=== PATIENT | male | born 1950 | race Caucasian/White ===

== ENCOUNTER 2020-04-11 13:06 | Emergency (ER) | payer MEDICARE, OTHER, SELFPAY ==
--- NOTE | 2020-04-11 13:12 | ED.GENADULT ---
HPI - General Adult General Chief complaint: Wound/Laceration Stated complaint: cut on left ankle Time Seen by Provider: 04/11/20 13:12 Source: patient Mode of arrival: ambulatory Limitations: no limitations History of Present Illness HPI narrative: 70-year-old male patient presents to the [facility] with complaints of laceration left ankle. Patient states that he was scratched by his son's dog which is a great Haris. Patient unaware of when his last tetanus shot was. Denies being a diabetic. Patient states it was bleeding pretty good when to come and get the wound checked out. Related Data Home Medications Medication Instructions Recorded Confirmed allopurinol 04/11/20 aspirin 04/11/20 atorvastatin 04/11/20 propranolol 04/11/20 Allergies Allergy/AdvReac Type Severity Reaction Status Date / Time No Known Allergies Allergy Verified 04/11/20 13:23 Review of Systems Review of Systems: Narrative: CONSTITUTIONAL: Denies fever, chills, or sweats. EYES: Denies visual changes, redness, or discharge. ENT: Denies rhinorrhea, congestion, sore throat, or otalgia. CARDIOVASCULAR: Denies chest pain, palpitations, or edema. RESPIRATORY: Denies cough or dyspnea. GASTROINTESTINAL: Denies abdominal pain, nausea, vomiting, or diarrhea. GENITOURINARY: Denies dysuria or hematuria. SKIN: Denies rash or itching. Positive laceration to left ankle MUSCULOSKELETAL: Denies back pain, joint pain, or myalgia. NEUROLOGIC: Denies headache, numbness, or weakness. PSYCHIATRIC: Denies anxiety or depression. [facility] Social History Social History Gender identity (if verbalized by the patient): Male Comments At the time of my signature I agree with nursing past medical history, surgical, social, and family history. There is no relevant family history pertinent to the presenting complaint. Exam Narrative: Exam Narrative: GENERAL: Well-appearing, well-nourished, and in no acute distress. HEAD: Normocephalic, atraumatic. EYES: PERRLA and EOMI. ENT: Nares clear, no rhinorrhea or epistaxis. Mucous membranes moist. NECK: Supple. No lymphadenopathy CHEST: Clear to auscultation. No respiratory distress. HEART: Regular rate and rhythm. No murmur heard. Normal peripheral pulses. ABDOMEN: Soft, nontender, nondistended, normal active bowel sounds. EXTREMITIES: Normal range of motion. No edema. SKIN: Warm, dry, no rash. Patient has approximately 1.5 cm laceration to the lateral left ankle right above the lateral malleolus. Bleeding is controlled. Patient has excellent range of motion to the foot and ankle. No numbness or tingling noted. NEURO: No focal deficits. Alert and oriented x3. Course Vital Signs Vital signs: Vital Signs Temperature 35.8 C L 04/11/20 13:18 Pulse Rate 94 04/11/20 13:18 Respiratory Rate 16 04/11/20 13:18 Blood Pressure 122/67 04/11/20 13:18 Pulse Oximetry 96 04/11/20 13:18 Temperature 35.8 C L 04/11/20 13:18 Pulse Rate 94 04/11/20 13:18 Respiratory Rate 16 04/11/20 13:18 Blood Pressure 122/67 04/11/20 13:18 Pulse Oximetry 96 04/11/20 13:18 Vital signs reviewed. Procedures Laceration Laceration 1: Date: 04/11/20 Time: 13:30 Site: lower extremity (Ankle) Side (If applicable): left Size (cm): 1.5 Description: linear Depth: simple, single layer Local Anesthetic: none Pre-repair: wound explored and irrigated ====== Skin Level ====== ====== Subcutaneous Layer ====== ====== Muscle Layer ====== ====== Tendon Layer ====== Dressing: The Procedure was explained and verbal consent was obtained. Copious irrigation was done with saline and Shur-Clens and the wound was explored. There was no foreign body or deep structure injury noted. Patient had good range of motion. Wound edges were approximated with good alignment using skin adhesive and Steri-S
[2020-04-11 13:18] VITALS: BP 122/67; PULSE 94; RESP 16; TEMP 35.8; O2SAT 96
[2020-04-11] MEDS: TETANUS,DIPHTHERIA,AC PERTUSSIS ADULT (0.5 ML) BOOSTRIX IM (13:38)
== END 2020-04-11 14:00 | disposition home or self-care (01) ==
PROVIDERS: Emergency Provider Nurse Practitioner Family; PCP Family Medicine
DX: S91.012A Laceration without foreign body, left ankle, initial encounter (principal); W54.8XXA Other contact with dog, initial encounter; Z23 Encounter for immunization; E78.00 Pure hypercholesterolemia, unspecified; I10 Essential (primary) hypertension; Z96.643 Presence of artificial hip joint, bilateral
CPT/HCPCS: 12001; 90471; 90715; 99213; G0463

== ENCOUNTER 2022-11-29 10:08 | Emergency (ER) | payer MEDICARE, SELFPAY ==
--- NOTE | ~2022-11-29 | XR_ITS ---
EXAMINATION: XR chest 2V DATE: 11/29/2022 10:46 INDICATION: Cough and congestion. Shortness of breath. TECHNIQUE: Frontal and lateral views of the chest were obtained. COMPARISON: None. FINDINGS: The chest demonstrates clear lungs without pneumonia, pleural effusion, or pneumothorax. Th e heart size is normal. IMPRESSION: 1. No acute cardiopulmonary disease. Reviewed, dictated and finalized at location A. 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
--- NOTE | 2022-11-29 10:12 | ED.URI ---
HPI - URI/Sore Throat General Chief Complaint: Upper Respiratory Infection Stated Complaint: Chest Congestion Time Seen by Provider: 11/29/22 10:12 Source: patient and RN notes reviewed History of Present Illness HPI Narrative: Patient is a 72-year-old male who presents to urgent care with complaints of chest congestion, and increased shortness of breath. Patient states that approximately 1 week ago he was seen at the [facility] convenient Care and given antibiotics and steroids. Patient states that they told him to follow up with a chest x-ray if the symptoms did not improve. Patient had a negative COVID, influenza and strep test. Patient attempted to get into his primary care doctor and was not able to be seen. Patient denies any fevers. States that the shortness of breath seems to have worsen on exacerbation however he has continued to swim 3 times per day at the local gym. Patient denies any recent wheezing. No other acute complaints. No acute distress noted. Patient aware of the plan care. Some parts of this dictation were generated by voice recognition software and may contain typographical and/or grammatical inaccuracies. Related Data Home Medications Medication Instructions Recorded Confirmed allopurinol 300 mg tablet mg 11/29/22 atorvastatin 80 mg tablet mg 11/29/22 azithromycin 250 mg tablet mg 11/29/22 furosemide 40 mg tablet mg 11/29/22 omeprazole 40 mg capsule,delayed mg 11/29/22 release prednisone 20 mg tablet mg 11/29/22 propranolol 10 mg tablet mg 11/29/22 Allergies Allergy/AdvReac Type Severity Reaction Status Date / Time No Known Allergies Allergy Verified 04/11/20 13:23 Review of Systems Review of Systems: CONSTITUTIONAL: Denies fever, chills, or sweats. EYES: Denies visual changes, redness, or discharge. ENT: Denies rhinorrhea, congestion, sore throat, or otalgia. CARDIOVASCULAR: Denies chest pain, palpitations, or edema. RESPIRATORY: Reports of increased dyspnea and chest congestion GASTROINTESTINAL: Denies abdominal pain, nausea, vomiting, or diarrhea. GENITOURINARY: Denies dysuria or hematuria. SKIN: Denies rash or itching. MUSCULOSKELETAL: Denies back pain, joint pain, or myalgia. NEUROLOGIC: Denies headache, numbness, or weakness. All other systems reviewed are negative, except as documented in HPI. [facility] Social History Social History Gender identity (if verbalized by the patient): Male Comments At the time of my signature, I reviewed and agree with the nursing past medical, surgical, social, and family history. There is no relevant family history pertinent to the patient complaint. Exam Narrative: GENERAL: This is a well-nourished, well-developed patient, in no apparent distress. HEAD: normocephalic, atraumatic. EYES: PERRL. Sclera clear/white. Vision is grossly intact. EARS: External ears normal, auditory canals clear and without drainage, TMs normal without perforation. Hearing grossly intact. NOSE: External nose normal with no obvious nasal discharge, nares without redness, clear rhinorrhea. THROAT: Mucous membranes moist, posterior pharynx clear. Mild postnasal drainage NECK: Neck supple RESPIRATORY: Scant inspiratory wheeze to bilateral upper lobes SKIN: warm, intact with no suspicious lesions or rash, good texture and turgor. NEURO: awake, alert, and oriented to person, place and time. There were no obvious focal neurologic abnormalities. EXTREMITIES: No clubbing, cyanosis, or edema. Course Course Level of Care: Express Care Visit Vital Signs Vital signs: Vital Signs Temperature 98 F 11/29/22 10:26 Pulse Rate 77 11/29/22 10:26 Respiratory Rate 20 11/29/22 10:26 Blood Pressure 155/77 H 11/29/22 10:26 Pulse Oximetry 98 11/29/22 10:26 Oxygen Delivery Room Air 11/29/22 10:26 Temperature 98 F 11/29/22 10:26 Pulse Rate 77 11/29/22 10:26 Respiratory Rate 20 11/29/22 10:26 Blood Pr
[2022-11-29 10:26] VITALS: BP 155/77; PULSE 77; RESP 20; TEMP 36.6; O2SAT 98
== END 2022-11-29 11:10 | disposition home or self-care (01) ==
PROVIDERS: Emergency Provider Nurse Practitioner Family; PCP Family Medicine
DX: J20.9 Acute bronchitis, unspecified (principal)
CPT/HCPCS: 71046; 99213; G0463

== ENCOUNTER 2024-09-22 11:37 | Emergency (ER) | payer OTHER, MEDICARE, SELFPAY ==
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
[2024-09-22 11:44] VITALS: BP 142/80; PULSE 82; RESP 20; TEMP 36.9; O2SAT 99
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
== END 2024-09-22 13:12 | disposition home or self-care (01) ==
PROVIDERS: Emergency Provider Nurse Practitioner; PCP Family Medicine
DX: S90.122A Contusion of left lesser toe(s) without damage to nail, initial encounter (principal); W50.0XXA Accidental hit or strike by another person, initial encounter; Y92.34 Swimming pool (public) as the place of occurrence of the external cause
CPT/HCPCS: 73660; 99213; G0463

== ENCOUNTER 2025-05-13 08:31 | Emergency (ER) | payer MEDICARE, SELFPAY ==
--- NOTE | ~2025-05-13 | XR_ITS ---
XR shoulder RT min 2V 05/13/2025 09:19 Indication: Right shoulder pain Procedure: 4 views right shoulder Comparison: No prior studies for comparison. Findings: There is mild polyarticular osteoarthritis. Osteopenia. No fracture or traumatic malalignme nt. No soft tissue abnormality. No foreign bodies. Impression: 1: Mild polyarticular osteoarthritis. Reviewed, dictated and finalized at location A. Impression: 1: Mild polyarticular osteoarthritis.
--- OUTSIDE RECORDS SUMMARY | 2025-05-13 08:33 | XMS_ITS | Clinical Summary ---
Author Organization [facility] Address [address] [place] [address] Care Team Providers Care Solid State Tester Name Role Phone Mina Aguirre MD Primary Care Provider [phone] Allergies No known active allergies Medications aspirin 325 mg tablet Take 1 tablet (325 mg total) by mouth daily Active allopurinoL (ZYLOPRIM) 300 mg tabletIndications:C hronic gout of multiple sites, unspecified cause Take 1 tablet (300 mg total) by mouth daily 90 tablet 3 4 Active atorvastatin (LIPITOR) 80 mg tabletIndications:M ixed hyperlipidemia Take 1 tablet (80 mg total) by mouth daily 90 tablet 3 4 Active HYDROcodone-acetami nophen (NORCO) 5-325 mg per tabletIndications:P ain Take 1 tablet by mouth every 6 (six) hours as needed for pain 8 tablet 5 Active methocarbamoL (ROBAXIN) 500 mg tablet Take 1 tablet (500 mg total) by mouth 2 (two) times a day as needed for muscle spasms 60 tablet 1 5 Active propranoloL (INDERAL) 10 mg tabletIndications:E ssential tremor TAKE 1 TABLET(10 MG) BY MOUTH TWICE DAILY 200 tablet 1 5 Active furosemide (LASIX) 40 mg tabletIndications:L eg swelling TAKE 1 TABLET(40 MG) BY MOUTH DAILY 100 tablet 1 5 Active omeprazole (PriLOSEC) 40 mg capsuleIndications: Gastroesophageal reflux disease with esophagitis without hemorrhage Take 1 capsule (40 mg total) by mouth 2 (two) times a day 180 capsule 1 5 Active ezetimibe (ZETIA) 10 mg tabletIndications:M ixed hyperlipidemia Take 1 tablet (10 mg total) by mouth daily 90 tablet 4 5 03/17/20 26 Active Active Problems Problem Noted Date Diagnosed Date BMI 35.0-35.9,adult 11/16/2024 Class 2 severe obesity due t o excess calories with serious comorbidity and body mass index (BMI) of 35.0 to 35.9 in adult 11/16/2024 Assessment & Plan (03/17/2025 10:36 AM CDT): Weight is stable. Patient is exercising regularly, water aerobics several days per week. Encouraged healthy diet and monitoring portion sizes. Acute right-sided low back pain with right-sided sciatica 11/16/2024 Laceration of ankle, left 09/12/2024 Ingrown nail of fifth toe of left foot Assessment & Plan (09/12/2024 9:39 AM COUNTRY PRINTER APPRENTICE): Mild erythema around nail of left 5th toe. No pain of distal toe or swelling. No drainage or red streaking. Encouraged patient to soak toe in epsom salt tid. Patient is established with podiatry, scheduled follow up in 2 weeks. Reviewed signs symptoms of worsening infection. Encounter for annual wellness exam in Medicare p atient 03/13/2024 Assessment & Plan (03/17/2025 10:32 AM CDT): Reviewed screenings and vaccinations. Current on c-scope. Discussed shingles vaccination, will get at [facility]. No falls or safety concerns. Denies any problems with memory, completed slums (see attached media). Chronic bilateral low back pain without sciatica 03/09/2023 Assessment & Plan (03/09/2023 1:32 PM CDT): Patient denies any injury or change in symptoms. He has been dealing with lower extremity weakness for many years. Patient would likely benefit from further evaluation and treatment with physical therapy, referral placed. He is very active, exercising regularly. Denies any problems with balance or falls. Bilateral impacted cerumen 10/03/2022 Assessment & Plan (04/10/2024 12:16 PM CDT): Ear tube out, ear drum healed Avoid ear cleaning techniques Follow up as needed May get water in ears Assessment & Plan (10/03/2022 2:08 PM COUNTRY PRINTER APPRENTICE): Avoid ear cleaning techniques Avoid water to left ear Follow up in 9 months, earlier with ear drainage Hyperglycemia 05/19/2022 Assessment & Plan (03/09/2023 1:39 PM CDT): Stable; continue to work on diet and exercise. Assessment & Plan (09/01/2022 1:26 PM COUNTRY PRINTER APPRENTICE): Lab Results Component Value Date HGBA1C 5.9 (H) 08/23/2022 HGBA1C 5.8 (H) 09/26/2019 Assessment & Plan (05/19/2022 7:37 AM CDT): Patient to redo is carb/sugar intake. Will check A1c. Cataract of both eyes 05/18/2022 Assessment & Plan (09/01/2022 1:38 PM COUNTRY PRINTER APPRENTICE): Surgery of left eye with sure [facility] 2 weeks ago. Assessment & Plan (05/18/2022 3:30 PM CDT): [facility] in the next few months. Severe obstructive sleep apnea 04/11/2022 Assessment & Plan (09/12/2024 9:50 AM COUNTRY PRINTER APPRENTICE): Managed by sleep medicine. Interested in discussing inspire device as he has difficulty fitting his mask. Will discuss with sleep med Assessment & Plan (09/01/2022 1:40 PM COUNTRY PRINTER APPRENTICE): Received bipap machine, reports nightly use while adjusting settings with sleep medicine. Assessment & Plan (05/18/2022 3:23 PM CDT): Patient following with sleep medicine, he is working on getting bipap machine. Will continue to monitor. Fadiangeline's ring 12/29/2021 Overview (12/29/2021): Added automatically from request for surgery [id number] Allergic rhinitis 12/19/2021 Assessment & Plan (12/19/2021 3:45 PM CDT): Will trial antihistamine and monitor response. Patient to notify office and return for evaluation if he develops any sob, fevers or worsening of symptoms. Discussed coughing with meals and associated concerns. Recommended sinus irrigation and nasal steroid. Leg swelling 11/10/2021 Assessment & Plan (05/19/2022 7:34 AM CDT): Using furosemide as needed for lower extremity edema. Discussed the need to use compression stockings and decrease dietary sodium,< 2400 mg/day. Patient to complete lab work today. Assessment & Plan (11/10/2021 7:07 PM COUNTRY PRINTER APPRENTICE): Stable; continues lasiks and using compression stockings. Refused influenza vaccine 11/10/2021 Pneumococcal vaccine refused 11/10/2021 Chronic gout of multiple sites 11/10/2021 Assessment & Plan (09/12/2024 9:40 AM COUNTRY PRINTER APPRENTICE): Denies any recent gout flares, continues allopurinol 300 mg daily. Assessment & Plan (03/13/2024 9:34 AM CDT): Stable, no recent exacerbations. Continue allopurinol 300 mg daily Assessment & Plan (03/09/2023 1:17 PM CDT): Doing well on allopurinol 300 mg daily, no recent gout flares. Assessment & Plan (11/10/2021 7:08 PM COUNTRY PRINTER APPRENTICE): No recent flares, continue allopurinol 300 mg daily. Refilled. Mixed hyperlipidemia 11/10/2021 Assessment & Plan (03/17/2025 10:35 AM CDT): Patient is compliant with atorvastatin 80 mg daily and ezetimibe 10 mg daily. Cholesterol is well controlled, mildly elevated triglyceride level. Encouraged patient to limit simple sugars/carbs. Work towards lower fat diet. Assessment & Plan (09/12/2024 9:40 AM COUNTRY PRINTER APPRENTICE): Has been taking atorvastatin 80 mg daily and zetia 10 mg daily as prescribed, was previously frequently forgetting medications. Lipid panel showing sig improvement. Assessment & Plan (03/09/2023 1:16 PM CDT): Patient reports he frequently forgets to take atorvastatin 80 mg daily. Recommended use of bill box or for him to take atorvastatin with am medications. XKS=[id number] Assessment & Plan (09/01/2022 1:26 PM COUNTRY PRINTER APPRENTICE): 11/2020 TC 223 TRG 140 HDL 42 LDL 153 05/2022 TC 192 HDL 37 TRG 119 LDL 131 08/2021 TC 200 HDL 39 TRG 145 LDL 132 Continues atorvastatin 80 mg daily. Discussed dietary changes and avoiding fried/fast/fatty/greasy foods. Assessment & Plan (05/18/2022 3:37 PM CDT): Condition is improving, but not at goal Discussed/ordered labs, encouraged healthy, low carbohydrate lifestyle and at least 150min/week of exercise, continue on atorvastatin 80 mg daily. Discussed need to reduce fried/fast/fatty greasy foods and red meats. 11/2020 TC 223 TRG 140 HDL 42 LDL 153 05/2022 TC 192 HDL 37 TRG 119 LDL 131 Assessment & Plan (11/10/2021 7:06 PM COUNTRY PRINTER APPRENTICE): Atorvastatin 80 mg daily. Denies any SE/myalgias Reviewed previous labs. 11/2020 TC 192 TRG 116 HDL 49 LDL 120. Will check labs today and make adjustments to medications as needed. Secondary prevention Discussed focusing on limiting bad fats in the diet and using exercise as a way to improve cholesterol. Essential tremor 11/10/2021 Assessment & Plan (03/09/2023 1:37 PM CDT): Stable; denies any changes in symptoms or worsening of tremor. Continues propanolol. Assessment & Plan (09/01/2022 1:26 PM COUNTRY PRINTER APPRENTICE): Stable; no changes today. Assessment & Plan (05/18/2022 3:27 PM CDT): Stable; doing well on propanolol. Will continue to monitor. Assessment & Plan (11/10/2021 7:09 PM COUNTRY PRINTER APPRENTICE): Stable; denies any new or worsening symptoms. Continue present management. GERD (gastroesophageal reflux disease) Assessment & Plan (03/17/2025 10:32 AM CDT): Breakthrough symptoms in the evening, does have some reflux at night. Denies any dysphagia or changes in voice. Continues omeprazole 40 mg daily. Discussed avoiding aggravating foods and avoid lying down after meals. Will increase omeprazole to bid. Encouraged weight loss. Patient to reach out if no improvement in the next 8-12 weeks and can plan for referral to GI for EGD. Assessment & Plan (05/18/2022 3:29 PM CDT): Doing well on omeprazole 40 mg daily. Notes significant improvement in cough following esophageal dilation. Discussed use of famotidine as needed for breakthrough reflux. Assessment & Plan (12/19/2021 3:43 PM CDT): Recommended repeat EGD. Patient would like to monitor symptoms for now. Feels coughing is secondary to postnasal drainage. Will notify our office if he does not have any improvement in symptoms in two weeks with plan to refer to GI for repeat EGD at that time. Dysfunction of left eustachian tube 09/27/2021 Assessment & Plan (04/09/2024 1:33 PM CDT): Ear tube out, ear drum healed Avoid ear cleaning techniques Follow up as needed May get water in ears Assessment & Plan (07/04/2023 10:00 AM CDT): Avoid ear cleaning techniques Follow up in 9 months for Left ear tube check Assessment & Plan (10/03/2022 2:08 PM COUNTRY PRINTER APPRENTICE): Avoid ear cleaning techniques Avoid water to left ear Follow up in 9 months, earlier with ear drainage Assessment & Plan (03/28/2022 1:17 PM CDT): Avoid ear cleaning techniques Avoid water to ears Left ear T-tube in place and patent Follow up in 6 months Assessment & Plan (11/10/2021 7:09 PM COUNTRY PRINTER APPRENTICE): PE tube in place. Is using ear plug while swimming/showering. No drainage on exam. Assessment & Plan (09/27/2021 1:08 PM COUNTRY PRINTER APPRENTICE): Avoid ear cleaning techniques Avoid water to Left ear Consider Hearing aids Follow up in 6 months, earlier with ear drainage Encounter for screening colo noscopy for [id number] patient 05/23/2021 Overview (05/23/2021): Added automatically from request for surgery [id number] Chronic middle ear effusion, left 01/24/2021 Assessment & Plan (03/22/2021 2:51 PM CDT): Avoid ear cleaning techniques Avoid water to ears Hearing test - [facility] consider CT temporal bone based on hearing test results Assessment & Plan (03/08/2021 2:36 PM CDT): Left myringotomy with T-tube placement today in the Office Risks and complications discussed including anesthesia, bleeding, infection, hearing loss, ear tubes may fall out early, fall inwards, stay in longer than a few years, get clogged, fall out and leave a hole in the ear drum that would need to be patched, drain clear fluid. Ciprofloxacin ear drops into the left ear twice daily for 5 days How to Use Ear Drops discussed and Handout provided Assessment & Plan (01/24/2021 10:17 PM CDT): [facility] tube [facility] in the Office based on these findings as MRI demonstrated considerable fluid on the left ear Follow up hearing test and possible CT Temporal based on hearing response to tube placement ASNHL (asymmetrical sensorineural hearing loss) 12/14/2020 Assessment & Plan (01/24/2021 10:59 AM CDT): Repeat Hearing test with Tympanograms Consider Ear tube placement in the Office based on these findings as MRI demonstrated considerable fluid on the left ear Follow up hearing test and possible CT Temporal based on hearing response to tube placement Assessment & Plan (12/14/2020 3:07 PM CDT): Sudden Asymmetric Hearing loss Left ear - MRI IACs Acute cholecystitis 11/03/2019 CAD (coronary artery disease) 11/03/2019 Elevated LFTs 11/03/2019 ANTONELLA (obstructive sleep apnea) 11/02/2019 Overview (09/12/2024): Severe on home sleep testing, AHI 43 / hr. Severe on home sleep testing, AHI 43 / hr. Assessment & Plan (03/13/2024 9:23 AM CDT): Nightly cpap use. Cholecystitis 11/01/2019 Overview (09/11/2023): Added automatically from request for surgery [id number] Chronic left hip pain 08/30/2019 Primary osteoarthritis of left hip 06/18/2019 Status post total replacement of right hip 03/31 Degenerative joint disease (DJD) of hip 03/20/20 19 Primary osteoarthritis of both hips 01/27/2019 Arthropathy of lumbar facet joint 06/02/2015 Osteoarthritis of knee 07/02/2014 Hypertension, essential, benign 07/02/2014 Tremor, essential 07/02/2014 Assessment & Plan (03/17/2025 10:35 AM CDT): Continued good response with use of propranolol 10 mg b.i.d.. No changes made today. Assessment & Plan (09/12/2024 9:46 AM COUNTRY PRINTER APPRENTICE): Reports sig improvement in tremor with use of propranolol. Gout 08/12/2012 Screening PSA (prostate specific antigen) 2011 Gastroesophageal reflux disease 05/10/2010 Hyperlipidemia 08/20/2009 Assessment & Plan (03/13/2024 9:29 AM CDT): Continue high intensity statin, atorvastatin 80 mg daily and will add ezetimibe 10 mg daily. Discussed diet recommendations. Continue active lifestyle. Will repeat labs in 6 months. Assessment & Plan (09/11/2023 9:14 AM COUNTRY PRINTER APPRENTICE): Cholesterol is well controlled on current medication regimen. Patient is taking atorvastatin 80 mg daily as prescribed. No change in current med regimen. We will repeat labs prior to next office visit. Labs ordered today Cellulitis and abscess of leg Lymphedema of both lower extremities Essential hypertension Assessment & Plan (03/13/2024 9:37 AM CDT): Blood pressure is well controlled, continue present management. Discussed heart healthy diet. Assessment & Plan (09/11/2023 9:13 AM COUNTRY PRINTER APPRENTICE): Condition is stable Discussed/ordered labs, encouraged healthy, low carbohydrate lifestyle and at least 150min/week of exercise, continue on propranolol 10 mg daily furosemide 40 mg daily Assessment & Plan (11/10/2021 7:08 PM COUNTRY PRINTER APPRENTICE): BP well controlled, continue current regimen. Resolved Problems Problem Noted Date Diagnosed Date Resolved Date Acute bronchitis 09/11/2023 03/17/2025 Class 2 severe obesity due t o excess calories with serious comorbidity and body mass index (BMI) of 36.0 to 36.9 in adult 11/10/2021 Assessment & Plan (09/12/2024 9:51 AM COUNTRY PRINTER APPRENTICE): Continues to be very active. Going to leisure world Assessment & Plan (09/11/2023 9:14 AM COUNTRY PRINTER APPRENTICE): Continue staying active going to gym and working out pool and on the machines. Discussed importance of increasing dietary protein and reducing carb intake. Reduce soda intake Assessment & Plan (09/01/2022 1:27 PM COUNTRY PRINTER APPRENTICE): Trying to reduce soda intake. Discussed healthy diet and importance of regular physical activity. Assessment & Plan (05/18/2022 3:30 PM CDT): Discussed healthy diet and importance of regular physical activity. Discussed benefits of weight loss of chronic health conditions. Recommended slowly increasing activity, starting with walking daily. Encouraged patient to stop drinking soda. Assessment & Plan (11/10/2021 7:09 PM COUNTRY PRINTER APPRENTICE): Discussed healthy diet and importance of regular physical activity. Hypomagnesemia 11/03/2019 03/13/2024 Class 1 obesity with serious comorbidity in adult 11/03/2019 03/13/2024 Chest pain 11/01/2019 03/13/2024 Right hip pain 01/27/2019 03/13/2024 Chronic low back pain 02/25/20152023 Malaise and fatigue 08/20/2009 03/13/20 24 Morbid obesity 11/10/2020 Encounters Date Type Department Care Team Description 03/17/2025 9:30 AM CDT Office Visit [facility] [address] [place] [address] Azra Vargas NP Encounter for annual wellness exam in Medicare patient (Primary Dx); Gastroesophageal reflux disease with esophagitis without hemorrhage; Tremor, essential; Mixed hyperlipidemia; Class 2 severe obesity due to excess calories with serious comorbidity and body mass index (BMI) of 35.0 to 35.9 in adult ([facility]) 03/04/2025 9:20 AM CDT Lab [facility] [address] [place] [id number] Encounter for prostate cancer screening; Mixed hyperlipidemia; IFG (impaired fasting glucose); Chronic gout of multiple sites, unspecified cause 03/04/2025 Telephone [facility] [address] [place] [id number] Azra Vargas NP from Last 3 Months Immunizations Immunization Administration Dates Next Due Influenza LAIV (Nasal) 10/12/2015 Influenza, Live, Intranasal, Quadrivalent 10/12/2015 Influenza, Unspecified 09/12/2024(Deferr ed: Patient Refused),07/01/2024(Deferred: Patient Refused),03/13/2024(Deferred: Patient Refused),09/11/2023(Deferred: Patient Refused),07/01/2023(Deferred: Patient Refused),07/01/2023(Deferred: Patient Refused),07/01/2023(Deferred: Patient Refused),09/01/2022(Deferred: Patient Refused),07/01/2022(Deferred: Patient Refused),07/01/2022(Deferred: Patient Refused),07/01/2022(Deferred: Patient Refused),07/01/2022(Deferred: Patient Refused),10/01/2021(Deferred: Patient Refused),07/01/2021(Deferred: Patient Refused),07/01/2021(Deferred: Patient Refused),07/01/2021(Deferred: Patient Refused),11/10/2020(Deferred: Patient Refused),10/01/2020(Deferred: Patient Refused),07/01/2020(Deferred: Patient Refused),10/01/2019(Deferred: Patient Refused),10/01/2019(Deferred: Patient Refused),10/01/2018(Deferred: Patient Refused) Tdap 04/11/2020 Surgical History Surgery Date Site/Laterality Comments TOTAL HIP ARTHROPLASTY JOINT REPLACEMENT Right Hip 03/2019; Left Hip 09/03/2019 CHOLECYSTECTOMY TYMPANOPLASTY COLONOSCOPY 01/09/2011 COLONOSCOPY 07/11/2021 TYMPANOSTOMY TUBE PLACEMENT 06/01/2021 - 06/30/2021 Left CATARACT EXTRACTION 07/09/2022 Right Medical History Medical History Date Comments Arthritis Hypertension Hyperlipidemia Family History Medical History Relation Name Comments Cancer Brother Arthritis Mother Hypertension Mother Stroke Mother Relation Name Status Comments Brother Father Mother Social History Tobacco Use Types Packs/Day Years Used Date Smoking Tobacco: Never Smokeless Tobacco: Never Tobacco Cessation:Counseling Given: Not Answered Alcohol Use Standard Drinks/Week Comments Not Currently 0 (1 standard drink = 0.6 oz pur e alcohol) PHQ-2 Answer Date Recorded PHQ-2 Total Score (If total score is 3 or more points, staff should administer the PHQ-9) 0 03/17/2025 Personal Safety Answer Date Recorded Have you ever been in or are you currently in a harmful physical or emotional relationship or is someone making you feel afraid or unsafe? Denies 10/29/2024 Sex and Gender Information Value Date Recorded Sex Assigned at Not on file Legal Sex Male 7:50 AM COUNTRY PRINTER APPRENTICE Gender Identity Not on file Sexual Orientation Pulido 09/27/2019 12 :19 PM COUNTRY PRINTER APPRENTICE Obstetrics History Last Filed Vital Signs Vital Sign Reading Time Taken Comments Blood Pressure 120/74 03/17/2025 9:28 AM CDT Pulse 73 03/17/2025 9:28 AM CDT Temperature 36.7 C (98 F) 03/17/2025 9:28 AM CDT Respiratory Rate 18 03/17/2025 9:28 AM CDT Oxygen Saturation 95% 03/17/2025 9:28 AM CDT Inhaled Oxygen Concentration - - Weight 116.1 kg (256 lb) 03/17/2025 9:28 AM CDT Height 180.3 cm (5' 10.98) 03/17/2025 9:28 AM C DT Body Mass Index 35.72 03/17/2025 9:28 AM CDT Plan of Treatment Health Maintenance Due Date Last Done Comments Hepatitis C Screening 1950 Hepatitis B Screening 01/24/1968 Zoster Vaccine (1 of 2) 01/24/2000 Covid-19 Vaccine ( season) 2024 10/25/2021, 01/09/2021, 12/18/2020 Influenza Vaccine (#1) 2025 10/12/2015, 2015 Depression Screening 03/17/2026 03/17/2025, 11/07/2024, 09/12/2024, Additional history exists Fall Risk Assessment 03/17/2026 03/17/2025, 11/07/2024, 03/13/2024, Additional history exists Pneumococcal vaccine 65+ (1 of 1 - PCV) 03/17/2026 Postponed from 01/24/2000 (Patient declined, but will receive in the future) Well Visit 65+ 03/17/2026 03/17/2025, 03/13/2024 DTaP/Tdap/Td Vaccine (2 - Td or Tdap) 04/11/2030 04/11/2020 Colon Cancer Screening-Colonoscopy 07/11/2031 07/11/2021, 01/09/2011 Colon Cancer Screening-CT Colonography Discontinued 07/11/2021, 01/09/2011 Colon Cancer Screening-DNA Stool Discontinued 07/11/2021, 01/09/2011 Colon Cancer Screening-FIT Discontinued 07/11/2021, Colon Cancer Screening-Sigmoidoscopy Discontinued 07/11/2021, 01/09/2011 Procedures Procedure Name Priority Date/Time Associated Diagnosis Comments EGFR Routine 03/04/2025 9:23 AM CDT Mixed hyperlipidemia DIFFERENTIAL AUTO Routine 03/04/2025 9:2 3 AM CDT Mixed hyperlipidemia URIC ACID Routine 03/04/2025 9:23 AM CDT Chronic gout of multiple sites, unspecified cause HEMOGLOBIN A1C Routine 03/04/2025 9:23 AM CDT IFG (impaired fasting glucose) CBC WITH AUTO DIFFERENTIAL Routine 03/04/2025 9:23 AM CDT Mixed hyperlipidemia COMPREHENSIVE METABOLIC PANEL Routine 03/04/2025 9:23 AM CDT Mixed hyperlipidemia LIPID PANEL Routine 03/04/2025 9:23 AM CDT Mixed hyperlipidemia PSA SCREEN Routine 03/04/2025 9:23 AM CDT Encounter for prostate cancer screening COLONOSCOPY 07/11/2021 7:54 AM CDT from Last 3 Months or Most Recently Relevant to Health Maintenance Results * eGFR (03/04/2025 9:23 AM CDT) eGFR 72 >=60 mL/min/1. 73 m2 Comment: Interpretive Data Reference Interval Normal >/= 90 mL/min/1.73m2 Mildly decreased* 60 - 89 mL/min/1.73m2 Mildly to moderately decreased 45 - 59 mL/min/1.73m2 Moderately to severely decreased 30 - 44 mL/min/1.73m2 Severely decreased 15 - 29 mL/min/1.73m2 Kidney Failure < 15 mL/min/1.73m2 *Relative to young adult level Estimated glomerular filtration rate is determined by the 2020 CKD-EPI equation recommended by the National [employer] (A Unifying Approach to GFR Estimation: Recommendations of the NKF-ASK Task Force on Reassessing the Inclusion of Race in Diagnosing Kidney Disease, JASN 2020). The CKD-EPI equation should not be used for patients with unstable renal function and has not been validated in children and those over 70. Current interpretive data was last reviewed 2021. Testing performed by: [address], [address] Blood 03/04/2025 9:23 AM CDT 03/04/2025 5:26 PM CDT Azra Vargas [employer] LAB BLOOD ORDERABLES Final Result [facility] ([facility]) [facility] [place] [address] * Differential, auto (03/04/2025 9:23 AM CDT) Neutrophil abs 5.32 1.50 - 6.50 K/cumm Comment:Testing performed by : [address], [id number] Imm gran abs 0.03 0.00 - 0.10 K/cumm [facility] ([place]) Comment:Testing performed by : [address], [address] Lymphocyte abs 1.47 0.80 - 3.30 K/cumm [facility] ([place]) Comment:Testing performed by : [address], [address] Monocyte abs 0.64 0.20 - 0.80 K/cumm [facility] ([place]) Comment:Testing performed by : [address], [address] Eosinophil abs 0.12 0.00 - 0.50 K/cumm [facility] ([place]) Comment:Testing performed by : [facility], [address] [place] [address]., [id number] Basophil abs 0.05 0.00 - 0.10 K/cumm [facility] ([place]) Comment:Testing performed by : [facility], [address] [place] [address]., [id number] Neutrophil pct 69.6 % [facility] ([place]) Comment: Interpretive Data Percent cell count reference ranges are not reported, since discordance with absolute values may lead to misinterpretation of CBC data. Current Interpretive Data was last revised on 2018. Testing performed by: [address] [address] Imm gran pct 0.4 % [facility] ([place]) Comment: Interpretive Data Percent cell count reference ranges are not reported, since discordance with absolute values may lead to misinterpretation of CBC data. Current Interpretive Data was last revised on 2018. Testing performed by: [facility], [address] [place] [address]., [id number] Lymphocyte pct 19.3 % [facility] R [facility] ([facility]) Comment: Interpretive Data Percent cell count reference ranges are not reported, since discordance with absolute values may lead to misinterpretation of CBC data. Current Interpretive Data was last revised on 2018. Testing performed by: [facility], [address] [place] [address]., [id number] Monocyte pct 8.4 % [facility] ([facility]) Comment: Interpretive Data Percent cell count reference ranges are not reported, since discordance with absolute values may lead to misinterpretation of CBC data. Current Interpretive Data was last revised on 2018. Testing performed by: [address] [address] Eosinophil pct 1.6 % [facility] ([place]) Comment: Interpretive Data Percent cell count reference ranges are not reported, since discordance with absolute values may lead to misinterpretation of CBC data. Current Interpretive Data was last revised on 2018. Testing performed by: [address] [address] Basophil pct 0.7 % [facility] ([place]) Comment: Interpretive Data Percent cell count reference ranges are not reported, since discordance with absolute values may lead to misinterpretation of CBC data. Current Interpretive Data was last revised on 2018. Testing performed by: [address] [address] Blood 03/04/2025 9:23 AM CDT 03/04/2025 5:14 PM CDT Azra Vargas LAB BLOOD ORDERABLES Final Result [facility] ([place]) 1 [facility] [place] [address] * PSA screen (03/04/2025 9:23 AM CDT) PSA-Total 0.28 <=6.20 ng/mL Comment: Interpretive Data AGE SEX REFERENCE INTERVAL 0 minutes-150 years Female None 0 minutes-49 years Male None 50-59 years Male 0-3.90 60-69 years Male 0-5.40 70-79 years Male 0-6.20 80-150 years Male 0-6.20 The Makayla PSA Total assay procedure was used. Results from different manufacturers or methods may not be comparable. Serial testing should be performed using the same method. Current interpretive data last revised 22. Testing performed by: [address] [address] Blood 03/04/2025 9:23 AM CDT 03/04/2025 5:14 PM CDT Azra Vargas [employer] LAB BLOOD ORDERABLES Final Result Performing Organization Address City/[facility]/ZIP Co de Phone Number SAQIB SABILLON (TABOR) 1 [facility] [employer] [place] [address] * CBC with auto differential (03/04/2025 9:23 AM CDT) WBC 7.63 3.80 - 9.90 K/cumm Comment:Testing performed by : [address] [address] Hgb 15.2 13.0 - 17.5 g/dL [facility] ([place]) Comment:Testing performed by : [facility], [address] [place] [address], [address] Hct 46.7 38.9 - 50.3 % [facility] ([place]) Comment:Testing performed by : [facility], [address] [place] [address], [id number] Plt 183 150 - 400 K/cumm [facility] ([place]) Comment:Testing performed by : [facility], [address] [place] [address], [id number] MPV 9.5 9.1 - 12.3 fL [facility] ([place]) Comment:Testing performed by : [address], [address] RBC 4.87 4.30 - 5.80 M/cumm [facility] ([place]) Comment:Testing performed by : [address], [address] MCV 95.9 81.3 - 96.4 fL [facility] ([place]) Comment:Testing performed by : [address], [address] MCH 31.2 27.1 - 33.3 pg [facility] ([place]) Comment:Testing performed by : [address], [address] MCHC 32.5 32.3 - 35.7 g/dL [facility] ([place]) Comment:Testing performed by : [address], [address] RDW CV 13.6 11.1 - 14.9 % [facility] ([place]) Comment:Testing performed by : [address], [address] RDW SD 47.8 35.7 - 48.1 fL [facility] ([place]) Comment:Testing performed by : [address], [address] NRBC abs 0.00 0.00 - 0.01 K/cumm [facility] ([place]) Comment:Testing performed by : [address], [address] Blood 03/04/2025 9:23 AM CDT 03/04/2025 5:14 PM CDT us Azra Vargas NP LAB BLOOD ORDERABLES Final Result SAQIB SABILLON ([place]) 1 [place] [address] * Uric acid (03/04/2025 9:23 AM CDT) Pathologist [facility] Uric acid 5.5 3.0 - 8.0 mg/dL Comment:Testing performed by : [facility], [address] [place] [address], [id number] Blood 03/04/2025 9:23 AM CDT 03/04/2025 5:14 PM CDT Azra Vargas NP LAB BLOOD ORDERABLES Final Result Performing Organization Address City/[facility]/RUST Co de Phone Number SAQIB SABILLON (TABOR) 1 [place] [address] * (ABNORMAL) Hemoglobin A1c (03/04/2025 9:23 AM CDT) Hgb A1C 6.4(H) 4.0 - 5.6 % Comment:Testing performed by : [facility], [address] [place] [address], [place]., [address] Estimated Average Glucose 137 mg/dL SAQIB SABILLON ([place]) Comment: The ADA recommends reporting an estimated Average Glucose (eAG) with all Hemoglobin A1c results using the equation derived from a study of 507 normal and diabetic adults. Minority populations were underrepresented and children were not included. (Diabetes Care 31:3333-5595, 2008). The eAG is not equivalent to a fasting glucose. Testing performed by: [facility], [address] [place] [address]., [id number] Blood 03/04/2025 9:23 AM CDT 03/04/2025 5:14 PM CDT Azra M. Magowan [employer] LAB BLOOD ORDERABLES Final Result SAQIB SABILLON ([place]) 1 [facility] [place] [address] * (ABNORMAL) Lipid panel (03/04/2025 9:23 AM CDT) Cholesterol 169 30 - 199 mg/dL Comment: Interpretive Data Ages < or = 19 years Acceptable: <170 mg/dL Borderline high: 170-199 mg/dL High: >or= 200 mg/dL Ages > or = 20 years Desirable: <200 mg/dL Borderline high: 200-239 mg/dL High: >or= 240 mg/dL Literature References: 1. Expert Panel on Integrated Guidelines for Cardiovascular Health and Risk Reduction in Children and Adolescents. Pediatrics 2011;128:S213 2. NCEP Expert Panel. Circulation 2004;110:227 Current Interpretive Data was last revised on 2018. Testing performed by: [address] [address] Triglycerides 192(H) <=149 mg/dL SAQIB SABILLON ([place]) Comment: Interpretive Data Ages < or = 9 years Acceptable: <75 mg/dL Borderline high: 75-99 mg/dL High: >or= 100 mg/dL Ages 10 to 20 years Acceptable: <90 mg/dL Borderline high: 90-129 mg/dL High: >or= 130 mg/dL Ages > or = 20 years Desirable: <150 mg/dL Borderline high: 150-199 mg/dL High: 200-499 mg/dL Very high: >or= 499 mg/dL Literature References: 1. Expert Panel on Integrated Guidelines for Cardiovascular Health and Risk Reduction in Children and Adolescents. Pediatrics 2011;128:S213 2. NCEP Expert Panel. Circulation 2004;110:227 Current Interpretive Data was last revised on 2018. Testing performed by: [address] [address] HDL 44 >=40 mg/dL SAQIB SABILLON ([place]) Comment: Interpretive Data Ages < or = 19 years Acceptable: >45 mg/dL Borderline low: 40-45 mg/dL Low: <40 mg/dL Ages > or = 20 years Desirable: >or= 60 mg/dL Low: <40 mg/dL Literature References: 1. Expert Panel on Integrated Guidelines for Cardiovascular Health and Risk Reduction in Children and Adolescents. Pediatrics 2011;128:S213 2. NCEP Expert Panel. Circulation 2004;110:227 Current Interpretive Data was last revised on 2018. Testing performed by: [address] [address] LDL, calculated 92 <=129 mg/dL SAQIB SABILLON ([place]) Comment: Interpretive Data Ages < or = 19 years Acceptable: <110 mg/dL Borderline high: 110-129 mg/dL High: >or= 130 mg/dL Ages > or = 20 years Optimal: <100 mg/dL Near optimal: 100-129 mg/dL Borderline high: 130-159 mg/dL High: >160 mg/dL Calculated using the Darren LDL-C estimating equation. This equation was implemented on 2024. Prior to this date LDL-C was estimated using the Friedewald equation. Literature References: 1. Expert Panel on Integrated Guidelines for Cardiovascular Health and Risk Reduction in Children and Adolescents. Pediatrics 2011;128:S213 2. NCEP Expert Panel. Circulation 2004;110:227 3. Darren Marmolejo et al. LEROY Cardiol. 2019January 29;5(5):540-548. doi: 10.1001/[email or web address] Current Interpretive Data was last revised on 2024. Testing performed by: [address] [address] Non-HDL Cholesterol 125 mg/dL SAQIB SABILLON ([place]) Comment: Interpretive Data Ages < or = 19 years Acceptable: <120 mg/dL Borderline high: 120-144 mg/dL High: >145 mg/dL Ages > or = 20 years When triglycerides are >200 mg/dL, Non-HDL cholesterol is a secondary target of therapy with treatment goals that are 30 mg/dL greater than the LDL cholesterol target. Literature References: 1. Expert Panel on Integrated Guidelines for Cardiovascular Health and Risk Reduction in Children and Adolescents. Pediatrics 2011;128:S213 2. NCEP Expert Panel. Circulation 2004;110:227 Current Interpretive Data was last revised on 2018. Testing performed by: [address] [address] Chol/HDL ratio 4 [facility] ([place]) Comment:Testing performed by : [facility], [address] [place] [address]., [address] Blood 03/04/2025 9:23 AM CDT 03/04/2025 5:14 PM CDT Azra Vargas [employer] LAB BLOOD ORDERABLES Final Result SAQIB SABILLON ([place]AN) 1 [facility] [place] [address] * (ABNORMAL) Comprehensive metabolic panel (03/04/2025 9:23 AM CDT) Sodium 139 135 - 145 mmol/L Comment:Testing performed by : [address] [address] Potassium, pl 4.6 3.3 - 4.9 mmol/L [facility] ([place]) Comment:Testing performed by : [address] [address] Chloride 102 97 - 110 mmol/L [facility] ([place]) Comment:Testing performed by : [address], [address] CO2 30 22 - 32 mmol/L [facility] ([place]) Comment:Testing performed by : [address], [address] Anion gap 7 2 - 15 mmol/L [facility] ([place]) Comment:Testing performed by : [address] [address] BUN 23 6 - 25 mg/dL [facility] ([place]) Comment:Testing performed by : [address], [address] Creatinine 1.07 0.80 - 1.30 mg/dL [facility] ([place]) Comment:Testing performed by : [address], [address] Glucose 115 70 - 199 mg/dL [facility] ([place]) Comment: Interpretive Data Fasting glucose >/= 126 mg/dl is diagnostic for diabetes. Fasting is defined as no caloric intake for at least 8 hours. Fasting glucose between 100 mg/dl to 125 mg/dl is diagnostic of prediabetes. In a patient with classic symptoms of hyperglycemia or hyperglycemic crisis, a random glucose >/= 200 mg/dl is diagnostic for diabetes. In the absence of unequivocal hyperglycemia, results should be confirmed by repeat testing. The classification and Diagnosis of Diabetes Diabetes Care 202; 46: S19-S40. Current interpretive data was last revised 2022. Testing performed by: [facility], [address] [place] [address], [address] Calcium 9.5 8.5 - 10.3 mg/dL [facility] ([place]) Comment:Testing performed by : [address], [address] Bilirubin, total 0.5 0.1 - 1.2 mg/dL [facility] ([place]) Comment:Testing performed by : [address], [address] Protein, pl 6.4(L) 6.5 - 8.5 g/dL [facility] ([place]) Comment:Testing performed by : [facility], [address] [place] [address], [address] Albumin 3.9 3.5 - 5.0 g/dL [facility] ([place]) Comment:Testing performed by : [address], [address] Alk phos 62 40 - 130 Units/L [facility] ([place]) Comment:Testing performed by : [address], [address] ALT 13 7 - 55 Units/L [facility] ([place]) Comment:Testing performed by : [address], [address] AST 30 10 - 50 Units/L [facility] ([place]) Comment:Testing performed by : [address], [address] Blood 03/04/2025 9:23 AM CDT 03/04/2025 5:14 PM CDT Azra Vargas NP LAB BLOOD ORDERABLES Final Result [facility] ([place] 1 [facility] [place] [address] * COLONOSCOPY (07/11/2021 7:54 AM CDT) Anatomical Region Laterality Modality Other Narrative Procedure Note Shamir Lui MD - 07/11/2021 7:54 AM CDT [facility] Patient Name: Amrit Carson Procedure Date: 07/11/2021 7:54 AM Date of : 1950 Admit Type: Outpatient Age: 71 Gender: Male Attending MD: Shamir Lui M.D. Room: [facility] ENDOSCOPY ROOM 2 Note Status: Finalized Patient Profile: Refer to note in patient chart for documentation of history and physical. Procedure: Colonoscopy Indications: Screening for colorectal malignant neoplasm, Last colonoscopy: December 2010 Referring MD: Mina Aguirre M.D. Providers: Shamir Lui M.D. Impression: - Hemorrhoids found on perianal exam. - Two 2 to 3 mm polyps in the ascending colon andin the cecum, removed with a jumbo cold forceps.Resected and retrieved. - The examination was otherwise normal. Recommendation: - Discharge patient to home. - Resume previous diet. - Continue present medications. - Await pathology results. - Repeat colonoscopy in 5 years for surveillance. - Return to primary care physician as previously scheduled. Medicines: Propofol per Anesthesia Complications: No immediate complications. Estimated Blood Loss: Estimated blood loss: none. Procedure: Pre-Anesthesia Assessment: - This assessment was completed [Time ofAssessment] prior to the administration of sedation. The benefits, risks and alternatives of theprocedure and sedation were discussed and informed consentwas obtained. All questions were answered. Please referto the signed informed consent document in the medical record. The bowel preparation used was Miralax and bisacodyl tablets via single dose instruction. The scope was passed under direct vision. TheColonoscope [id number] was introduced through the anus and advanced to the the cecum, identified by appendiceal orifice and ileocecal valve. The colonoscopy was performed without difficulty. The patient tolerated the procedure well. The qualityof the bowel preparation was good. Findings: Hemorrhoids were found on perianal exam. Two sessile polyps were found in the ascending colon and cecum. The polyps were 2 to 3 mm in size. These polyps were removed with a jumbo cold forceps. Resection and retrieval were complete. Verification of patient identification for the specimen was done by the physician and nurse using the patient's name and date. Estimated blood losswas minimal. The exam was otherwise without abnormality. Electronically signed by Shamir Lui M.D. Shamir Lui M.D. 07/11/2021 8:56:33 AM Number of Addenda: 0 Note Initiated On: 07/11/2021 7:54 AM Procedure Code(s): --- Professional --- 40439, Colonoscopy, flexible; with biopsy, single or multiple Diagnosis Code(s): --- Professional --- K63.5, Polyp of colon K64.9, Unspecified hemorrhoids Z12.11, Encounter for screening for malignant neoplasm of colon CPT copyright 2019 [employer]. All rights reserved. The codes documented in this report are preliminary and upon project manager finance reviewmay be revised to meet current compliance requirements. Recognized by the [employer] for promoting quality in endoscopy Shamir Lui MD ENDOSCOPY PROCEDURES Final Re sult from Last 3 Months or Most Recently Relevant to Health Maintenance Insurance MEDICARE EQUIP Advantage OFFICE MEDICARE HU[employer]NA MEDICARE SUPPLEMENT Advance Directives For more information, please contact: [phone] * Full Code (Latest Code Status on File) Date Activated Date Inactivated Comments 01/05/2022 9:57 AM 01/05/2022 4:41 PM * Full Code Date Activated Date Inactivated Comments 07/11/2021 7:35 AM 07/11/2021 2:02 PM * Full Code Date Activated Date Inactivated Comments 09/26/2019 2:27 PM 09/29/2019 8:01 PM Care Teams Solid State Tester Relationship Specialty Start Date End Date Mina Aguirre MD [address] [place] [address] PCP - General Family Medicine 05/10/20
--- OUTSIDE RECORDS SUMMARY | 2025-05-13 08:34 | XMS_ITS | Continuity of Care Document ---
Author Organization [employer] [facility] Address [address] [facility] [place] [address] [place] [address] Phone Care Team Providers Care Rn Assessment Name Role Phone Tim Polanco MD Unavailable Unavailable Allergies, Adverse Reactions, Alerts Substance Reaction Status Criticality latex Active No Information Medications Medication Instructions Dosage Effective Dates (start - stop) Status Comments propranolol 10 mg tablet take 2 tablet by oral route 3 times every day 20 MG - Active allopurinol 300 mg tablet take 1 tablet by oral route every day 300 MG - Active furosemide 40 mg tablet take 3 tablet by oral route every day 120 MG - Active omeprazole 40 mg capsule,delayed release take 1 capsule by oral route every day before a meal 40 MG - Active atorvastatin 80 mg tablet take 1 tablet by oral route every day 80 MG - Active Procedures Procedure Date No Charge Optomap Fundus Photos 023 Eye Exam & Treatment Refraction Post-op Follow-up Visit Post-op Follow-up Visit Post-op Follow-up Visit No Charge Optomap Fundus Photos 022 Remove Cataract, Post Op Care 2 Remove Cataract, Insert Lens,Comanaged N [facility]OLMaster-Professional No Charge Refraction Post-op Follow-up Visit Remove Cataract, Post Op Care 2 Remove Cataract, Insert Lens,Comanaged S [facility]OLMaster-Professional No Charge Optomap Fundus Photos 022 IOLMaster-Technical No Charge GDX Retina No Charge Refraction Corneal Topography Office/outpatient Visit, Est No Charge Optomap Fundus Photos 022 No Charge Refraction Office/outpatient Visit, New Advance Directives Directive Yes / No Effective Date File Name No Information Encounters Encounter Description Practice Location Reason(s) For Visit Diagnoses Date Provider Providers Copied on Encounter [employer], [address], [place], [place], [address], [place] [phone] SEC Denny VISHAL Professional 6 month Complete (chief complaint) Amblyopia, leftExotropia , left eyeAnterior basement membrane dystrophy (ABMD) of both eyesPresence of intraocular lens 3 Collin Dumont. [address] [facility] [place], [place], [place], [address], [place]. tel:[phone] Referring Provider: Christy Romo OD L, [address], [place], [address] . tel:[phone] [employer], [address], [place], [place], [address], [place] tel:[phone] SEC [place] VISHAL Professional 2 week s/p PCIOL (chief complaint) Post op visit 2 Clarissa Harrison. [address], [address], [place], [place], [address], [place]. tel:[phone] Referring Provider: Christy Romo OD L, [address], [place], [address] . tel:[phone] [employer], [address], [place], [place], [address], tel:[phone] SEC [place] Professional post op (chief complaint) Post op visit 2 Clarissa Harrison. [address], [address], [place], [place], [address], [place]. tel:[phone] Referring Provider: Christy Butcher, [address], [place], [address] . tel:[phone] [facility], [address], [place], [place], [address], [place] tel:[phone] [place] Professional Flickering light (chief complaint) Post op visit 2 Clarissa SUMMERS Christy. [facility] [address] [employer], [address], [place], [place], [address], [place]. tel:[phone] Referring Provider: Christy Butcher, [facility] [address], [place], [address] . tel:[phone] [facility], [address] [place] [address] [address], [place], [place], [address], [place] tel:[phone] SEC [place] Professional 1 day s/p PCIOL (chief complaint) Post op visit 2 Collin Dumont. [address] [facility], [address], [place], [place], [address], [place]. tel:[phone] Referring Provider: Christy Butcher, [facility] [address] [facility] [address], [place], [address] . tel:[phone] [facility], [address] [place] [address] [address], [place], [place], [address], [place] tel:[phone] [facility] [place] No Information 2 Collin Dumont. [address] [facility], [address], [place], [place], [address], [place]. tel:[phone] Referring Provider: Christy Butcher, [facility] [address] [facility] [address], [place], [address] . tel:[phone] [facility], [address], [place], [place], [address], [place] tel:[phone] SEC Denny RODGERS Professional No Information 2 Collin Dumont. [address] [facility], [address], [place], [place], [address], [place]. tel:[phone] Referring Provider: Christy Butcher, [address], [place], [address] . tel:[phone] [facility], [address], [place], [place], [address], [place] tel:[phone] SEC Denny RODGERS Professional post op (chief complaint) Post op visit 2 Clarissa Harrison. [address] [employer], [address], [place], [place], [address], [place]. tel:[phone] Referring Provider: Christy Butcher, [address], [place], [address] . tel:[phone] [facility], [address], [place], [place], [address], [place] tel:[phone] SEC Denny RODGERS Professional Post-Op (chief complaint) Post op visit 2 Samreen Garcia. [address] [place] [address] Eye [facility], [place], [address], [place]. tel:[phone] Referring Provider: Christy Butcher, [address], [place], [address] . tel:[phone] [facility], [address], [place], [place], [address], [place] tel:[phone] [facility] No Information 2 Collin Dumont. [address] [facility], [address] [place], [address], . tel:[phone] Referring Provider: Christy Butcher, [facility] [employer] [address], [place], [address] . tel:[phone] [facility], [address], [place], [place], [address], [phone] SEC Denny RODGERS Professional No Information 2 Collin Dumont. [address] [facility], [facility] [place], [address], . tel:[phone] Referring Provider: Christy Butcher, [facility] [employer] [address], [place], [address] . tel:[phone] Office/outpa tient Visit, [facility], [facility] [address], [place], [place], [address], [place] [phone] SEC Denny RODGERS Professional Cataract evaluation (chief complaint) Age-related nuclear cataract, bilateralAmbl yopia, leftAnterior basement membrane dystrophy (ABMD) of both eyesExotropia , left eye 2 Collin Dumont. [address] [facility], [address], [place], [place], [address], [place]. [phone] Referring Provider: Christy Butcher, [facility] [employer] [address], [place], [address] . tel:[phone] [facility]pa [facility], [facility], [facility] [address], [place], [place], [address], [place] tel:[phone] SEC Denny RODGERS Professional complete (chief complaint) Age-related nuclear cataract, bilateralAmbl yopia, leftExotropia , left eyeAnterior basement membrane dystrophy (ABMD) of both eyes 2 Clarissa Harrison. [facility] [employer], [address], [place], [place], [address], . tel:[phone] Referring Provider: Christy Butcher, [address], [place], [address] . tel:[phone] [facility], [address], [place], [place], [address], [place] tel:[phone] SEC Denny RODGERS Professional No Information 2 Collin Tim. [address] [facility], [address], [place], [place], [address], [place]. tel:[phone] Family History Family Member Type Diagnosis Age At Onset No Information Payers Payer name Insurance type Covered alliance party ID Authoriza tijimbo(s) Medicare VISHAL GONZALES [id number] Hum[employer] Medicare Supplement Plan CI [id number] Social History Type Description Quantity Date Captured Comments Alcohol Use Details No Caffeine Use Details Tobacco Use Status Current non-smoker Smoking Status Never smoker Non-Smoking Tobacco Use Details : No Details Available : No Details Available Sex Male Chief Complaint And Reason For Visit From encounter dated '03/05/2023 09:45'. 6 month Complete (chief complaint). Description: The 73 year old patient presents for evaluation of6 month Complete in the right eye and left eye. Patient states eyes water sometimes.. VA seems the same. Reason For Referral Reason For Referral No Information Plan Of Treatment Date Type Action Status Patient Education Cataracts: Care Instruc tions completed Patient Education Cataract Surgery: Befor e Your Surgery completed History Of Present Illness Encounter Date Complaint History Of Prese nt Illness 6 month Complete The 73 year old patient presents for evaluation of 6 month Complete in the right eye and left eye. Patient states eyes water sometimes.. VA seems the same. 2 week s/p PCIOL The 72 year old patient presents for evaluation of 1 month s/p PCIOL in the left eye (08/21/22). Patient states VA seems pretty good. post op The 72 year old patient presents for a 1 week post op CE OS. Patient is using Pred, Vigamox and Ketorolac qid OS. Patient states OS is watering. Flickering light The 72 year old patient presents for evaluation of Flickering light in the left eye. Pt reports flickering of light, temporal, since CE. Pt reports VA is better since CE, OS. 1 day s/p PCIOL The 72 year old patient presents for evaluation of 1 day s/p PCIOL in the left eye. Patient states VA seems pretty good but he is seeing a flickering of light that started last night. Patient instructed to use Pred, Ket, and Vig as well as use of eye shield. post op The 72 year old patient presents for a 2 week post op CE OD. Patient is using Pred and Ketorolac bid OD. Patient states OD is doing good. Patient wishes to proceed with CE OS. Patient has a hard time seeing road signs and is bothered by glare around lights at night. Post-Op The 72 year old patient presents for a 1 day post op CE OD. Patient is using Pred, Vigamox and Ketorolac qid OD. Patient denies any pain or discomfort. Patient states vision OD is a lot better. Cataract evaluation The 72 year old patient presents for evaluation of Cataract evaluation in the right eye and left eye. Hx of CAT OU, ABMD OU, Amblyopia OS, XT OS, Pinguecula OU, and Conjunctivochalasis OU. Pt reports he doesn't use any gtts, OU. Pt reports he has trouble reading street signs while driving, has trouble driving at night and is bothered by glare from headlights and other bright lights, OU, x several mos. complete The 72 year old patient presents for a complete exam ou. Patient states the last few weeks his distance vision isn't good. Patient has a hard time seeing road signs. Patient states he is Amblyopic OS. Functional Status Date Functional Assessmen t No Information Instructions Date Instruction Additional Infor chhaya Impression/Plan 6 months [facility] Related to Post op visit Impression/Plan Related to Post op visit Impression/Plan Impression/Plan Impression/Plan Impression/Plan Impression/Plan Impression/Plan Impression/Plan Assessments Type Assessment Date assessment Amblyopia, left assessment Exotropia, left eye assessment Anterior basement membrane dystr ophy (ABMD) of both eyes assessment Presence of intraocular lens Mar Patient Care Teams Name Effective Dates (start - stop) Status Members No Information
--- OUTSIDE RECORDS SUMMARY | 2025-05-13 08:36 | XMS_ITS | Continuity of Care Document ---
Author Organization [employer] [facility] Address [address] [facility] [place] [address] Phone Care Team Providers Care Personal Computer Network Engineer Name Role Phone Tim Pol[place] MD Unavailable [...] Diagnoses Date Provider Providers Copied on Encounter [employer], [address], [place], [place], [address], [place] [phone] SEC Denny VISHAL Professional 6 month Complete (chief complaint) Amblyopia, leftExotropia , left eyeAnterior basement membrane dystrophy (ABMD) of both eyesPresence of intraocular lens 3 Collin Dumont. [address] [facility], [place], [place], [address], [place]. tel:[phone] Referring Provider: Christy Romo OD L, [address], [place], [address] . tel:[phone] [employer], [address], [place], [place], [address], [place] tel:[phone] SEC [place] VISHAL Professional 2 week s/p PCIOL (chief complaint) Post op visit 2 Clarissa Harrison. [address], [address], [place], [place], [address], [place]. tel:[phone] Referring Provider: Christy Romo OD L, [address], [place], [address] . tel:[phone] [employer], [address], [place], [place], [address], tel:[phone] SEC [place] Professional post op (chief complaint) Post op visit 2 Clarissa Harrison. [employer], [address], [place], [place], [address], [place]. tel:[phone] Referring Provider: Christy Butcher, [address], [place], [address] . tel:[phone] [facility], [address], [place], [place], [address], [place] tel:[phone] SEC [place] Professional Flickering light (chief complaint) Post op visit 2 Clarissa SUMMERS Christy. [facility] [address] [employer], [address], [place], [place], [address], [place]. tel:[phone] Referring Provider: Christy Butcher, [facility] [address] [employer] [address], [place], [address] . tel:[phone] [facility], [address] [place] [address] [address], [place], [place], [address], [place] tel:[phone] SEC [place] Professional 1 day s/p PCIOL (chief complaint) Post op visit 2 Collin Dumont. [address] [facility], [address], [place], [place], [address], [place]. tel:[phone] Referring Provider: Christy Butcher, [facility] [address] [employer] [facility] [address], [place], [address] . tel:[phone] [facility], [address] [place] [address] [address], [place], [place], [address], [place] tel:[phone] [facility] [place] No Information 2 Collin Dumont. [address] [facility], [address], [place], [place], [address], [place]. tel:[phone] Referring Provider: Christy Butcher, [facility] [address] [employer] [facility] [address], [place], [address] . tel:[phone] [facility], [address] [employer] [address], [place], [place], [address], [place] tel:[phone] SEC Denny RODGERS Professional No Information 2 Collin Dumont. [address] [facility], [address], [place], [place], [address], [place]. tel:[phone] Referring Provider: Christy Butcher, [address], [place], [address] . tel:[phone] [facility], [address], [place], [place], [address], [place] tel:[phone] SEC Denny RODGERS Professional post op (chief complaint) Post op visit 2 Clarissa Harrison. [address] [employer], [address], [place], [place], [address], [place]. tel:[phone] Referring Provider: Christy Butcher, [address], [place], [address] . tel:[phone] [facility], [address], [place], [place], [address], [place] tel:[phone] SEC Denny RODGERS Professional Post-Op (chief complaint) Post op visit 2 Samreen Garcia. [address] [place] [address] Eye [facility] [place], [place], [address], [place]. tel:[phone] Referring Provider: Christy Butcher, [address], [place], [address] . tel:[phone] [facility], [address] [employer] [address], [place], [place], [address], [place] tel:[phone] [facility] No Information 2 Collin Dumont. [address] [facility], [address] [place], [place], [address], . tel:[phone] Referring Provider: Christy Butcher, [facility] [address], [place], [address] . tel:[phone] [facility], [address], [place], [place], [address], [phone] SEC Denny RODGERS Professional No Information 2 Collin Dumont. [address] [facility], [facility] [place], [address], . tel:[phone] Referring Provider: Christy Butcher, [facility] [address], [place], [address] . tel:[phone] Office/outpa tient Visit, [facility], [facility] [address], [place], [place], [address], [place] [phone] SEC Denny RODGERS Professional Cataract evaluation (chief complaint) Age-related nuclear cataract, bilateralAmbl yopia, leftAnterior basement membrane dystrophy (ABMD) of both eyesExotropia , left eye 2 Collin Dumont. [address] [facility], [address], [place], [place], [address], [place]. [phone] Referring Provider: Christy Butcher, [facility] [address], [place], [address] . tel:[phone] [facility], [facility] [address], [place], [place], [address], [place] tel:[phone] SEC Denny RODGERS Professional complete (chief complaint) Age-related nuclear cataract, bilateralAmbl yopia, leftExotropia , left eyeAnterior basement membrane dystrophy (ABMD) of both eyes 2 Clarissa Harrison. [facility] [employer], [address], [place], [place], [address], . tel:[phone] Referring Provider: Christy Butcher, [address], [place], [address] . tel:[phone] [facility], [address], [place], [place], [address], [place] tel:[phone] SEC Denny RODGERS Professional No Information 2 Collin Tim. [address] [facility], [address], [place], [place], [address], [place]. tel:[phone] Family History Family Member Type Diagnosis Age At Onset No Information Payers Payer name Insurance type Covered constitution party ID Authoriza tijimbo(s) Medicare VISHAL GONZALES [id number] Hum[employer] Medicare Supplement Plan CI [id number] Social History Type Description Quantity Date Captured [...] Instruction Additional Infor chhaya Impression/Plan 6 months [facility] Related to Post op [...]
[2025-05-13 08:37] VITALS: BP 142/71; PULSE 72; RESP 18; TEMP 36; O2SAT 97
--- NOTE | 2025-05-13 09:07 | ED.UPPEXIN ---
HPI - Extremity Injury (Upper) General Chief Complaint: Extremity Injury, Upper Stated Complaint: right shoulder pain Time Seen by Provider: 05/13/25 08:32 Source: patient Mode of arrival: ambulatory Limitations: no limitations History of Present Illness HPI narrative: Amrit is a 75-year-old male patient presenting to the clinic today with complaints for right shoulder pain x2 days. He reports he accidently hit his shoulder on a door when he was walking [place] 2 [place]. He is reporting right posterior shoulder pain. Rates his pain a 7/10 currently. Pain is dull when not moving but he reports the pain is sharp when he is lifting. No bruising or swelling. Has not taken any Tylenol or Motrin for the pain but states he has been taking muscle relaxers. Is concerned that he may have tore/injured a tendon or ligament. Related Data Home Medications ?Medication ?Instructions ?Recorded ?Confirmed ?Last Taken ?Type allopurinol 300 mg tablet mg 11/29/22 Unknown History atorvastatin 80 mg tablet 80 mg 11/29/22 Unknown History furosemide 40 mg tablet mg 11/29/22 Unknown History omeprazole 40 mg capsule,delayed 40 mg 11/29/22 Unknown History release propranolol 10 mg tablet mg 11/29/22 Unknown History ezetimibe 10 mg tablet mg 09/22/24 Unknown History Allergies Allergy/AdvReac Type Severity Reaction Status Date / Time No Known Allergies Allergy Verified 04/11/20 13:23 Review of Systems Review of Systems: Pertinent positives per HPI. Patient denies any fever, chills, rash, headache, visual changes, dizziness, cough, runny nose, sore throat, shortness of breath, chest pain, palpitations, nausea, vomiting, diarrhea, constipation, abdominal pain, or any urinary issues. PMFSH Social History Social History Gender identity (if verbalized by the patient): Male Comments At the time of my signature, I reviewed and agree with the nursing past medical, surgical, social, and family history. There is no relevant family history pertinent to the patient complaint. Exam Narrative: General: Well-developed, well nourished, in no apparent distress Head: Normocephalic, atraumatic. Cardio: Regular rate and rhythm, s1 and s2 normal, no murmur appreciated. Resp: Clear to auscultation bilaterally, no rhonchi, rales, wheezing or rubs. Musculoskeletal: No deformity, tender to palpation over the posterior shoulder, grossly normal range of motion, pain with cross-arm test, negative full can and empty can test, negative drop-arm test, good posterior reach, muscle strength strong and equal, peripheral pulse strong, no edema, no cyanosis, normal gait and station Course Course Emergency Course: Portions of this record may have been created with voice recognition software. Level of Care: Express Care Visit Vital Signs Vital signs: Vital Signs Temperature 36.0 C L 05/13/25 08:37 Pulse Rate 72 05/13/25 08:37 Respiratory Rate 18 05/13/25 08:37 Blood Pressure 142/71 H 05/13/25 08:37 Pulse Oximetry 97 05/13/25 08:37 Oxygen Delivery Room Air 05/13/25 08:37 Temperature 36.0 C L 05/13/25 08:37 Pulse Rate 72 05/13/25 08:37 Respiratory Rate 18 05/13/25 08:37 Blood Pressure 142/71 H 05/13/25 08:37 Pulse Oximetry 97 05/13/25 08:37 Oxygen Delivery Room Air 05/13/25 08:37 Vital signs reviewed MDM - Extremity Injury (Upper) MDM Narrative Medical decision making narrative: At the time of visit patient is resting comfortably on the exam table. Patient appears to be nontoxic. Complaints for right shoulder pain x2 days. He reports he accidently hit his shoulder on a door when he was walking through the [place] 2 [place]. He is reporting right posterior shoulder pain. Rates his pain a 7/10 currently. Pain is dull when not moving but he reports the pain is sharp when he is lifting. No bruising or swelling. Has not taken any Tylenol or Motrin for the pain but states he has been taking muscle relaxers. On exam patient has posterior right shoulder pain with positive cross-arm test. X-ray of the right shoulder was ordered. Diagnostics: X-ray of the right shoulder was performed and shows no acute fracture or malalignment. Does show mild poly articular osteoarthritis Plan: I suspect patient has right shoulder strain. Supportive measures were discussed with the patient and they voiced understanding discharge instructions and agrees to treatment plan. Return precautions reviewed Differential Diagnosis Differential diagnosis: Likely dislocation of shoulder and other (Shoulder sprain, humerus fracture, clavicle fracture, contusion, soft tissue injury) Imaging Data Radiologist's impression: ITS Impressions Shoulder X-Ray 05/13/25 09:21 Impression: 1: Mild polyarticular osteoarthritis. Discharge Plan Discharge Clinical Impression: Right shoulder strain Qualifiers: Encounter type: initial encounter Qualified Code(s): S46.911A - Strain of unspecified muscle, fascia and tendon at shoulder and upper arm level, right arm, initial encounter Osteoarthritis Qualifiers: Osteoarthritis location: shoulder Osteoarthritis type: primary Laterality: right Qualified Code(s): M19.011 - Primary osteoarthritis, right shoulder Patient Disposition: Home Condition: Stable Instructions: Antibiotic Form, Osteoarthritis (ED), Shoulder Pain (ED) Additional Instructions: X-rays negative for any fracture or malalignment of the right shoulder does show mild polyarticular osteoarthritis May take Tylenol/Motrin as needed for pain as directed per bottle instructions Be mindful of sedation precautions given to you if taking a muscle relaxer. May use heat or ice to the affected area May use blue emu, lidocaine patches, or asper cream to affected area- do not apply heat or ice directly over cream- can cause burn. Complete appropriate shoulder stretching exercises. Follow up with your PCP in 3-5 days if symptom persist. Patient Language: Upper Sorbian Prescriptions: No Action furosemide 40 mg tablet atorvastatin 80 mg tablet 80 mg omeprazole 40 mg capsule,delayed release(DR/EC) 40 mg propranolol 10 mg tablet allopurinol 300 mg tablet ezetimibe 10 mg tablet Follow-up/Referrals: Harms,Mina Marks M.D. [Primary Care Provider] - Time of Disposition: 09:29 Quality NIHSS Nursing Documentation ED NIHSS nursing documentation: reviewed/agree
== END 2025-05-13 09:40 | disposition home or self-care (01) ==
PROVIDERS: Emergency Provider Nurse Practitioner Family; PCP Family Medicine
DX: S46.911A Strain of unspecified muscle, fascia and tendon at shoulder and upper arm level, right arm, initial encounter (principal); W22.09XA Striking against other stationary object, initial encounter; M19.011 Primary osteoarthritis, right shoulder; I10 Essential (primary) hypertension; E78.00 Pure hypercholesterolemia, unspecified; G47.30 Sleep apnea, unspecified; K21.9 Gastro-esophageal reflux disease without esophagitis; Z96.643 Presence of artificial hip joint, bilateral
CPT/HCPCS: 73030; 99213; G0463